=== PATIENT | female | born 1985 | race Caucasian/White ===

== ENCOUNTER 2016-09-24 21:08 | Inpatient (IN) | payer OTHER ==
[~2016-09-24] VITALS: Ht 167.6 cm; Wt 139.7 kg
--- NOTE | ~2016-09-24 | PA ---
Unit #: [id number] #: [id number] Patient: DELIA HDEZ [id number] [facility] [address] [place] [address] [id number] I MR#: [id number] NAME: DELIA HDEZ ROOM: 81 Age: 31 Sex: F Admission Date: 09/25/2016 : 1985 Date of Assessment: Attending Physician: Tracie Velez M.D. Admitting Physician: Tracie Velez M.D. PSYCHIATRIC ASSESSMENT DATE OF SERVICE 09/25/2016. IDENTIFYING DATA Ms. Hdez is a 31-year-old single white female, who is a resident of [place], [place], and was self-referred to the hospital on a voluntary basis. CHIEF COMPLAINT "I want help detoxing off heroin and alcohol." HISTORY OF PRESENT ILLNESS Ms. Hdez is a 31-year-old white female with history of substance abuse and dependence, who was self-referred to the hospital. She reports that she has been using about 1.5 g of heroin on a daily basis and she drinks about 5 days a week and drinks about 3-1/2 gallons a day and reports that she is a binge drinker and that she uses a gram of meth a day as well and smokes and uses IV methamphetamine and reports that she uses about fifteen 10 mg Klonopin and Xanax on a daily basis and reports that she believes that it would be easier if she was not here and reports not sleeping and eating and decompensating on her mood and daily functioning. She reports that her last use of heroin was about 30 minutes before coming to the hospital and took nine Klonopin 2 hours ago and 2 hours before that she took 4 Klonopin and reports using 0.5 g of heroin and reports having significant withdrawal symptoms, having a history of withdrawal seizures in the past, and as such, a recommendation for inpatient level of care for safety and stabilization was made and the patient was transferred to us. SUBSTANCE ABUSE HISTORY The patient reports extensive history of substance abuse and dependence including alcohol, cannabis, cocaine, opioids, amphetamines, and benzodiazepines, though currently it appears that alcohol, opioids, and benzodiazepines have been her drug of choice. PAST PSYCHIATRIC HISTORY The patient has had a history of inpatient chemical dependency [facility], and [facility], and review of the medical records indicate currently she is not active in any treatment program, is not seeing a psychiatrist, and is not taking any psychotropic medications. PAST MEDICAL HISTORY Hepatitis C and history of withdrawal seizures. Unit #: [id number] #: [id number] Patient: DELIA HDEZ ALLERGIES Penicillin and amoxicillin. PERSONAL AND SOCIAL HISTORY A 31-year-old white female, who reports that she lives at home with her boyfriend and has a 7-year-old son and reports fairly decent social support system. MENTAL STATUS EXAMINATION Young white female, who was casually dressed with fair personal hygiene, appears to be in no acute distress or discomfort. She was awake and alert on interaction with intact orientation to time, place, and person. Her mood was anxious and depressed with a congruent affect. Her speech was slow and goal directed. She denies any suicidal or homicidal ideations and also denies any auditory or visual hallucinations. Her insight and judgment remain significantly impaired. DIAGNOSTIC IMPRESSION Psychiatric: Opioid dependence, moderate, in acute withdrawals; alcohol dependence, moderate, in acute withdrawals; benzodiazepine dependence, moderate, in acute withdrawals; and methamphetamine dependence, moderate. Medical: None. Stressors: Moderate psychosocial stressors. TREATMENT PLAN 1. The patient has presented with a history of mood disorder and substance abuse and has been decompensating and will need inpatient hospitalization for detoxification, safety, and stabilization. We will start her back on her home medications and we will adjust the medications and monitor response. 2. Supportive therapy was provided to the patient. 3. Safe, structured, and nourishing environment will be provided. ESTIMATED LENGTH OF STAY 5 to 7 days. ABILITY TO HELP SELF Limited. WILLINGNESS TO HELP SELF The patient appears to be willing to help self. STRENGTHS 1. Communicative. 2. Cooperative. PROBLEMS 1. Chronic dysphoric symptoms. 2. Chronic chemical dependency. 3. Poor social support system. DISCHARGE CRITERIA This will be contingent upon the patient's ability to go through detox without having any significant withdrawal symptoms as well as her ability to stay safe to herself, particularly after discharge from the hospital. Dictated by... Unit #: [id number] #: [id number] Patient: DELIA HDEZ Brennen Martin/celestino TD: 09/25/2016 18:21 JOB #: [id number] PSYCHIATRIC ASSESSMENT Page 1 of 1 X Tracie Velez MD PSYCHIATRIC ASSESSMENT
--- NOTE | ~2016-09-24 | PN ---
Unit #: [id number] #: [id number] Patient: DELIA HDEZ [id number] [facility] [address] [place] [address] [id number] MR#: [id number] NAME: DELIA HDEZ ROOM: [facility] Age: 31 Sex: F Admission Date: 09/25/2016 : 1985 Attending Physician: Tracie Velez M.D. Admitting Physician: Tracie Velez M.D. Primary Care Physician: Primary Care Physician Arti CHINO NOTES DATE 09/28/2016 DISCUSSION Ms. Hdez is a 31-year-old white female with substance abuse and mood disorder who was seen today and chart was reviewed and chart was reviewed and case was discussed with the staff. She has had a rough weekend as she has not been able to function very well neither has she been able to come out of her room. However, she was laying in her bed but was able to make eye contact and interact somewhat better stating that she wants help with depression as she stated that her brother and that she has been going through some grief and loss and has been reporting increased depression though still appears to be actively detoxing. Meanwhile, she has been taking the medications and tolerating them fairly well with no reported side effects. MENTAL STATUS EXAMINATION Young white female who was casually dressed with fair personal hygiene, appears to be in no acute distress or discomfort. She was awake and alert on interaction with intact orientation. Her mood was anxious and depressed with congruent affect. She denies any suicidal or homicidal ideations. Also, denies any auditory or visual hallucinations. Her insight and judgement remains slightly impaired. TREATMENT PLAN 1. We will continue her on her current medications and treatment protocol. We will monitor her response to the medication and make further adjustments as needed. 2. We will continue to follow up. Dictated by... Brennen Martin/bassam TD: 09/29/2016 04:29 JOB #: [id number] Unit #: [id number] #: [id number] Patient: DELIA HDEZ LULÚ NOTES Page 1 of 1 X Tracie Velez MD PROGRESS NOTE
--- NOTE | ~2016-09-24 | DS ---
Unit #: [id number] #: [id number] [facility]: [facility]Z [id number] [facility] [address] [place] [address] [id number] I MR#: [id number] NAME: DELIA HDEZ ROOM: 81 Age: 31 Sex: F Admission Date: 09/25/2016 : 1985 Discharge Date: 09/30/2016 Attending Physician: Tracie Velez M.D. Primary Care Physician: Primary Care Physician No DISCHARGE SUMMARY IDENTIFYING DATA Ms. Hdez is a 31-year-old single white female, who is a resident of [place], [place], and was self-referred to the hospital on a voluntary basis. DISCHARGE DIAGNOSES Psychiatric: Opioid dependence, moderate and acute withdrawals; alcohol dependence, moderate and acute withdrawals; benzodiazepine dependence, moderate and acute withdrawals; methamphetamine dependence, moderate. Medical: None. Stressors: Moderate psychosocial stressors. HISTORY OF PRESENT ILLNESS Please see initial psychiatric evaluation for details. PAST PSYCHIATRIC HISTORY Please see initial psychiatric evaluation for details. PAST MEDICAL HISTORY Please see initial psychiatric evaluation for details. HOSPITAL COURSE The patient was admitted to the adult chemical [facility] [place] [place] [facility] and was oriented to the hospital environment. Routine p.r.n. medications were initiated, and she was started back on her home medication; however, she was seen to be in acute distress and discomfort and as such, she was detoxing off multiple substances and her drug screen upon presentation was positive for opioids, cannabis, methamphetamine, benzodiazepines, and as such, she was started on both opioids and benzodiazepine detox protocol and was closely monitored. She was taking the medications regularly and was seen to be rather anxious, withdrawn, and seclusive to herself and was in some distress and discomfort and soon afterwards, she started talking about wanting to leave and though was encouraged to the stay with longer to give her better prognosis, she was not willing to accept treatment recommendations and was denying any suicidal ideations, intent, or plan and was not meeting criteria for involuntary psychiatric hospitalizations and as such, it was decided that she will be discharged home and will continue treatment on an outpatient basis. DISCHARGE MEDICATIONS Lexapro 10 mg at bedtime for depression. DISCHARGE CONDITION Unit #: [id number] #: [id number] Patient: LEMUEL,DELIA Stable. PROGNOSIS Fair. Dictated by... Brennen Martin/celestino TD: 09/30/2016 07:01 JOB #: [id number] DISCHARGE SUMMARY Page 1 of 1 X Tracie Velez MD X DISCHARGE SUMMARY
--- NOTE | ~2016-09-24 | PN ---
Unit #: [id number] #: [id number] Patient: DELIA HDEZ [id number] [facility] [address] [place] [address] [id number] I MR#: [id number] NAME: DELIA HDEZ ROOM: [facility] Age: 31 Sex: F Admission Date: 09/25/2016 : 1985 Attending Physician: Tracie Velez M.D. Admitting Physician: Tracie Velez M.D. Primary Care Physician: Primary Care Physician Arti CHINO NOTES DATE 09/26/2016 DISCUSSION Ms. Hdez is a 31-year-old white female who was seen today and chart was reviewed and case was discussed with the staff. She was seen to be in acute distress and discomfort as she was laying in her bed and was going through detox and was seen to be anxious, restless ____ and grooming, unable to carry on meaningful conversation. Meanwhile, she has been taking medications and tolerating them fairly well with no reported side effects. MENTAL STATUS EXAMINATION Young white female who was casually dressed with fair personal hygiene and appears to be in distress and discomfort. She was awake and alert with impaired attention and concentration. Her mood was anxious and depressed with congruent affect. She denies any suicidal or homicidal ideations. Her insight and judgement remains slightly impaired. TREATMENT PLAN 1. Will continue on current medications and treatment protocol. Will monitor her response to the medications and make further adjustments as needed. 2. Will continue to follow up. Dictated by... Brennen Martin/fransisco TD: 09/26/2016 20:43 JOB #: [id number] Unit #: [id number] #: [id number] Patient: DELIA HDEZ TODDANTONIO LULÚ NOTES Page 1 of 1 X Tracie Velez MD PROGRESS NOTE
--- NOTE | ~2016-09-24 | HP ---
Unit #: [id number] #: [id number] Patient: DELIA HDEZ [id number] [place] [address] [id number] MR#: [id number] NAME: DELIA HDEZ ROOM: 81 Age: 31 Sex: F Admission Date: 09/25/2016 : 1985 Attending Physician: Tracie Velez M.D. Admitting Physician: Tracie Velez M.D. Primary Care Physician: Primary Care Physician No HISTORY AND PHYSICAL HISTORY OF PRESENT ILLNESS Delia is a 31 year old admitted to [facility] because of her polysubstance abuse which includes alcohol, benzodiazepines, IV meth and heroin. PAST MEDICAL HISTORY 1. History of alcohol abuse. 2. History of illicit substance abuse to include benzodiazepines, IV meth and IV heroin. 3. Morbid obesity. PAST SURGICAL HISTORY 1. x1. 2. Lap-Band. ALLERGIES Penicillin. SOCIAL HISTORY Smokes less than 1 pack per day. Drinks 3 gallons of liquor on a weekly basis and admits to illicit substance abuse to include IV drugs and benzodiazepines. FAMILY HISTORY Medically noncontributory. REVIEW OF SYSTEMS CONSTITUTIONAL: No fever or chills. HEENT: Denies any sore throat, ear pain or runny nose. CARDIOVASCULAR: Denies chest pain, irregular heart rhythm or palpitations. CHEST: Denies shortness of breath or cough. No hemoptysis. GASTROINTESTINAL: Denies nausea, vomiting, diarrhea or chronic constipation. ENDOCRINE: Denies history of increased thirst or urination. No recent significant weight loss or gain. GENITOURINARY: Denies dysuria, frequency, or hematuria. SKIN: Denies any rashes. HEMATOLOGIC: Denies history of increased bleeding or bruising. MUSCULOSKELETAL: Denies any hot, swollen joints. No generalized muscle pain. NEUROLOGIC: Denies problems with vision or speech. No frequent, severe headaches. No numbness, tingling or weakness in any extremities. Denies loss of bladder or bowel control. Unit #: [id number] #: [id number] Patient: DELIA HDEZ CURRENT MEDICATIONS Detox protocol. PHYSICAL EXAMINATION GENERAL: Alert, morbidly obese, in no apparent distress. VITAL SIGNS: Blood pressure 132/78, heart rate 80, respirations 16, temperature 98.6. WEIGHT: 308. HEIGHT: 5 feet 6 inches. SKIN: Warm and dry without rash or lesion. HEENT: Normocephalic. TMs not viewed. Oral and nasal passages clear. Conjunctivae clear. PERRLA. EOMs intact. NECK: Supple without lymphadenopathy or thyromegaly. HEART: Regular rate and rhythm without murmur. LUNGS: Clear. ABDOMEN: Soft, nontender. : Not done. EXTREMITIES: No evidence of cyanosis, clubbing or edema. Moves all without focal deficit. NEUROLOGICAL: Grossly within normal limits. Cranial Nerves: II: Visual jasmine are intact. III, IV AND : Extraocular movements are intact. Pupils are equal, round and reactive to light. V: Facial sensation is grossly normal. VII: Facial movements and expression are normal. VIII: Auditory acuity grossly intact. IX, X: Uvula is midline. Phonation is normal. XI: Patient shrugs shoulders and turns head normally. XII: Tongue protrudes in the midline. Sensory and Motor Function: Sensory and motor sensation is grossly normal. Motor: moves all extremities well. Coordination: Gait is normal. Deep Tendon Reflexes: Intact. IMPRESSION Psychiatric admission. RECOMMENDATIONS PSYCHIATRIC: Per psychiatrist. MEDICAL: See no contraindication to participate in facility's activities. MEDICAL PROGNOSIS Good. MEDICAL CONDITION Stable. Dictated by... Monica Reynolds P.A.-C. for Brennen Sanabria/fransisco TD: 09/25/2016 22:32 JOB #: [id number] Unit #: [id number] #: [id number] Patient: DELIA HDEZ HISTORY AND PHYSICAL Page 1 of 1 X Monica Reynolds HISTORY AND PHYSICAL
--- NOTE | ~2016-09-24 | PN ---
Unit #: [id number] #: [id number] Patient: DELIA HDEZ [id number] [facility] [address] [place] [address] [id number] MR#: [id number] NAME: DELIA HDEZ ROOM: [facility] Age: 31 Sex: F Admission Date: 09/25/2016 : 1985 Attending Physician: Tracie Velez M.D. Admitting Physician: Tracie Velez M.D. Primary Care Physician: Primary Care Physician Arti CHINO NOTES DATE 09/29/2016 DISCUSSION Ms. Hdez is a 31-year-old white female with substance abuse and mood disorder who was seen today and chart was reviewed and case was discussed with the staff. The patient has been doing fairly well and has been showing improvement in her detox symptoms and appears to be coming out of the detox without any complications. She has been taking medications and tolerating them fairly well with no reported side effects. MENTAL STATUS EXAMINATION Young white female who was casually dressed with fair personal hygiene, appears to be in no acute distress or discomfort. She was awake and alert on interaction with intact orientation. Her mood was anxious with congruent affect. She denies any suicidal or homicidal ideations. Her insight and judgement remains slightly impaired. TREATMENT PLAN 1. We will continue her on her current medications and treatment protocol. We will monitor her response to the medication and make further adjustments as needed. 2. We will continue to follow up. Dictated by... Brennen Martin/bassam TD: 09/30/2016 03:51 JOB #: [id number] Unit #: [id number] #: [id number] Patient: DELIA HDEZ PROGRESS NOTES Page 1 of 1 X Tracie Velez MD PROGRESS NOTE
--- NOTE | ~2016-09-24 | PN ---
Unit #: [id number] #: [id number] Patient: DELIA HDEZ [id number] [facility] [address] [place] [address] [id number] I MR#: [id number] NAME: DELIA HDEZ ROOM: [facility] Age: 31 Sex: F Admission Date: 09/25/2016 : 1985 Attending Physician: Tracie Velez M.D. Admitting Physician: Tracie Velez M.D. Primary Care Physician: Primary Care Physician Arti RODARTE PROGRESS NOTES DATE September 27, 2016 DISCUSSION Ms. Hdez is a 31-year-old white female, who was seen today and chart was reviewed and the case was discussed with the staff. She has been anxious, withdrawn, and rather seclusive to herself. Meanwhile, she has been cooperative with the treatment recommendations and she has been taking the medications and tolerating them fairly well with no reported side effects but still appears to be in distress and discomfort as she goes through detox. MENTAL STATUS EXAMINATION Young white female, who was casually dressed with fair personal hygiene and appears to be in no acute distress or discomfort. She was awake and alert with impaired attention and concentration. Her mood was anxious with a congruent affect. The patient denies any suicidal or homicidal ideations. Her insight and judgment remain slightly impaired. TREATMENT PLAN 1. We will continue her on her current medications and treatment protocol, and will monitor her response to the medications, and make further adjustments as needed. 2. We will continue to followup. Dictated by... Brennen Martin/jean TD: 09/28/2016 09:39 JOB #: [id number] Unit #: [id number] #: [id number] Patient: DELIA HDEZ PROGRESS NOTES Page 1 of 1 X Tracie Velez MD PROGRESS NOTE
[~2016-09-24 21:08] MED LIST: IBUPROFEN800 MG PO; PHENERGAN PO; PRENATAL MULTIV1 TA1 PO; ZANTAC150 M1 PO
[2016-09-25 10:33] LABS: BASOPHIL% 0.3 % (0-2.5); EOSINOPHIL# 0.3 X10e3 (0-0.7); EOSINOPHIL% 2.8 % (0.0-7.0); HEMATOCRIT 40.5 % (35.0-45.0); HEMOGLOBIN 13.2 gm/dL (12.0-16.0); LYMPHOCYTE# 3.8 X10e3 (1.0-3.5); LYMPHOCYTE% 37.6 % (17.0-45.0); MEAN CELL VOLUME 88.9 FL (83-96); MEAN CORPUSCULAR HGB CONC 32.6 g/dL (30-36); MEAN PLATELET VOLUME 7.8 FL (6.5-11.5); MONOCYTE% 9.9 % (3.0-12.0); NEUTROPHIL% 49.4 % (40-75); PLATELET COUNT 274 X10e3 (140-420); RED BLOOD COUNT 4.56 X10e (3.90-5.30); WHITE BLOOD COUNT 10.1 X10e3 (4.0-10.5)
[2016-09-25 10:40] LABS: DIFF IND NO
[2016-09-25 10:57] LABS: ALBUMIN SERUM 3.7 g/dL (3.5-5.0); BILIRUBIN,TOTAL 1.3 mg/dL (0.2-2.0); BUN/CREATININE RATIO 22.5; CALCIUM SERUM 9.6 mg/dL (8.4-10.2); CREATININE SERUM 0.4 mg/dL (0.6-1.4); GLOM FILT RATE Estimated 140.8 mL/min (>60); POTASSIUM 3.9 mmol/L (3.5-5.1); PROTEIN TOTAL SERUM 6.7 g/dL (6.0-8.3)
[2016-09-26 11:05] LABS: URINE APPEARANCE CLOUDY; URINE BLOOD NEG (NEG); URINE COLOR YELLOW; URINE GLUCOSE NORM (NORM); URINE KETONE NEG (NEG); URINE LEUKOCYTE ESTERASE NEG (NEG); URINE NITRATE POS (NEG); URINE PROTEIN 1+ (NEG); URINE UROBILINOGEN NORM (NORM)
[2016-09-26 11:42] LABS: AMPHETAMINE POS (NEG); BARBITURATES NEG (NEG); BENZODIAZEPINES POS (NEG); COCAINE NEG (NEG); MARIJUANA POS (NEG); OPIATES POS (NEG); TRICYCLIC ANTIDEPRESSANTS NEG (NEG); U METHADONE NEG (NEG)
[2016-09-26 12:07] LABS: URINE BILIRUBIN NEG (NEG)
[2016-09-26 12:15] LABS: URINE BACTERIA AUWI 3+ (NEGATIVE)
== END 2016-09-30 12:20 | disposition home or self-care (01) | DRG 897 ==
LOC: P1E 09-25 00:20
PROVIDERS: Psychiatry & Neurology Psychiatry
PROC: HZ2ZZZZ Detoxification Services for Substance Abuse Treatment (ICD-10-PCS; principal; 2016-09-25)
DX: F11.23 Opioid dependence with withdrawal (principal); F15.20 Other stimulant dependence, uncomplicated; F10.239 Alcohol dependence with withdrawal, unspecified; F13.239 Sedative, hypnotic or anxiolytic dependence with withdrawal, unspecified; F17.210 Nicotine dependence, cigarettes, uncomplicated; Z98.84 Bariatric surgery status; E66.01 Morbid (severe) obesity due to excess calories; Z88.0 Allergy status to penicillin
CPT/HCPCS: 80053; 80307; 81003; 84703; 85025; 86592